=== PATIENT | male | born 1955 | race Caucasian/White ===

== ENCOUNTER 2021-10-25 13:00 | Inpatient (IN) | payer MEDICARE ==
[~2021-10-25] VITALS: Ht 177.8 cm; Wt 84.1 kg
[2021-11-03] MEDS ORDERED: CARV6.253 PO (10:24)
[2021-11-03] MEDS ORDERED: LISI10TA27 PO (10:24)
[2021-11-03] MEDS ORDERED: ATOR-2 PO (10:24)
[2021-11-03] MEDS ORDERED: EZET10TA6 PO (10:24)
[2021-11-03] MEDS ORDERED: HYDR-3965 PO (10:24)
[2021-11-03] MEDS ORDERED: FENO145T26 PO (10:24)
[2021-11-03] MEDS ORDERED: [UNRECOGNIZED DRUG - CODE] PO (10:24)
[2021-11-03 12:05] LABS: BASOPHILS % (AUTO) 0.6 % (0-1); EOSINOPHILS # (AUTO) 0.2 X10'3 (0-0.9); EOSINOPHILS % (AUTO) 2.6 % (0-6); LYMPHOCYTES # (AUTO) 1.7 X10'3 (1.1-4.8); LYMPHOCYTES % (AUTO) 25.1 % (21-51); MEAN CORPUSCULAR HEMOGLOBIN 30.2 PG (27.0-31.0); MEAN CORPUSCULAR HGB CONC 33.6 g/dL (33.0-36.5); MEAN CORPUSCULAR VOLUME 89.9 FL (78-98); MEAN PLATELET VOLUME 5.9 FL (7.4-10.4); MONOCYTES # (AUTO) 0.5 X10'3 (0-0.9); MONOCYTES % (AUTO) 7.3 % (2-12); NEUTROPHILS # (AUTO) 4.3 X10'3 (1.8-7.7); NEUTROPHILS % (AUTO) 64.4 % (42-75); PRE OP HEMATOCRIT 42.6 % (42.0-52.0); PRE OP HEMOGLOBIN 14.3 g/dL (14.0-17.9); PRE OP PLATELET COUNT 239 X10'3 (140-440); RED BLOOD COUNT 4.74 X10'6 (4.70-6.10)
[2021-11-03 12:07] LABS: ALBUMIN 4.5 G/DL (3.4-5.0); ALBUMIN/GLOBULIN RATIO 1.3 (1.1-1.5); ALKALINE PHOSPHATASE 54 IU/L (46-116); BLOOD UREA NITROGEN 24 MG/DL (7-18); BUN/CREATININE RATIO 20.7 (5.4-32.0); CALCIUM 8.9 MG/DL (8.5-10.1); CHLORIDE 105 MMOL/L (99-107); CREATININE 1.16 MG/DL (0.60-1.10); PRE OP ALT 28 U/L (30-65); PRE OP ANION GAP 10 (8-16); PRE OP AST 18 U/L (10-37); PRE OP BILIRUB, TOTAL 0.6 MG/DL (0.0-1.0); PRE OP GLUCOSE 106 MG/DL (70-104); PRE OP POTASSIUM 4.5 MMOL/L (3.4-5.1); PRE OP SODIUM 142 MMOL/L (135-145); TOTAL CARBON DIOXIDE 26.6 MMOL/L (24-32); eGFR 63 ML/MIN
[2021-11-05] MEDS ORDERED: ISOS30TA84 PO (13:21)
[2021-11-08] VITALS (20 sets, daily range): BP systolic 110–188; BP diastolic 67–97
[2021-11-08] MEDS ORDERED: ringers solution, lacted 1,000 ML IV SCH ×2 (05:00→14:30)
[2021-11-08] MEDS ORDERED: DOCUMENT DATE & TIME OF BETA-BLOCKER PO ONE (05:30)
[2021-11-08] MEDS ORDERED: vancomycin 1,500 MG in NS 300ml IV soln IV ONE (05:30)
[2021-11-08] MEDS ORDERED: ceFAZolin inj. 2,000 MG in dextrose 5%-water 100 ML IV ONE (05:30)
[2021-11-08] MEDS ORDERED: tranexamic acid 650mg tablet PO ONE (05:30)
[2021-11-08] MEDS ORDERED: famotidine 20mg tablet PO ONE (05:30)
--- NOTE | 2021-11-08 09:30 | NUR ---
PT WAS ABLE TO COMPLETE 3 OF THE 5 DAYS OF OINTMENT AND SHOWERS D/T DELAYED OBTAINMENT OF OINTMENT, PT EDUCATED RE: IS AND ON-Q BALL, PT HAS HAD PREVIOUS TSA AND DID READ THE SHOULDER BOOKLET, CSM INTACT TO LEFT ARM.
[2021-11-08] MEDS ORDERED: HYDR-3972 PO (09:36)
[2021-11-08] MEDS ORDERED: HYDROcodone/acetaminophen 10/325mg tab PO ONE (09:40)
[2021-11-08] MEDS ORDERED: ROPIVAcaine 0.5% (5mg/ml) 30ml vial ONE ×2 (11:25→12:30)
[2021-11-08] MEDS ORDERED: ketorolac trometh. 30mg/ml inj. ONE (11:25)
[2021-11-08] MEDS ORDERED: fentaNYL/PF 50MCG/1 ML 2ML syringe ONE ×2 (11:43→12:50)
[2021-11-08] MEDS ORDERED: midazolam 1 mg/ML 2ml injection ONE ×2 (11:44→11:58)
[2021-11-08] MEDS ORDERED: ondansetron/PF 4mg/2ml inj ONE (12:30)
[2021-11-08] MEDS ORDERED: dexamethasone sod phosphate 4mg/ml inj. ONE (12:30)
[2021-11-08] MEDS ORDERED: propofol inj 20 ML IV ONE (12:30)
[2021-11-08] MEDS ORDERED: ketamine 50mg/5ml syringe ONE (12:48)
[2021-11-08 13:50] LABS: APPEARANCE,SYNOVIAL FLUID CLOUDY; COLOR,SYNOVIAL FLUID YELLOW; SYN RBC 526 /CU MM (0); SYN WBC 146 /CU MM (0-200); SYNOVIAL LINING CELLS MANY
[2021-11-08] MEDS ORDERED: acetaminophen 1,000mg/100ml IV 100 ML IV ONE (14:13)
--- NOTE | 2021-11-08 14:25 | NUR ---
Received from OR via BED, accompanied by Anesthesiologist and OR NURSE. report given by Anesthesiolgist. VERBAL ORDER TAKEN AT BEDSIDE FROM MD FOR DEMEROL TO BE GIVEN FOR SHIVERS. LEFT SHOULDER DRESSING CDI; PWDR PACK IN PLACE,LEFT ARM IN SLING. 20G IN PLACE TO RT LFA. PT DROWSY; RESPONDS TO VERBAL COMMANDS. DENIES PAIN Addendum: 11/08/21 at 1447 by Shana Michel RN Amended: Links added.
[2021-11-08] MEDS ORDERED: ROPIVAcaine 0.2% (10 MG/5 ML) BOLUS INJECTION INTERSCALE PRN (14:30)
[2021-11-08] MEDS ORDERED: ROPIVAcaine 0.2%/PF PUMP/bolus 545 ML INTERSCALE SCH (14:30)
[2021-11-08] MEDS ORDERED: proCHLORperazine 10 MG/2 ml inj IV PRN (14:30)
[2021-11-08] MEDS ORDERED: meperidine/PF 25mg/ml syringe IV PRN ×3 (14:30)
[2021-11-08] MEDS ORDERED: ondansetron/PF 4mg/2ml inj IV PRN ×2 (14:30→15:00)
[2021-11-08] MEDS ORDERED: morphine 2 MG/ML inj. syringe IV PRN (14:30)
[2021-11-08] MEDS ORDERED: meperidine/PF 25mg/ml syringe ONE (14:31)
[2021-11-08] MEDS ORDERED: oxyCODONE IR 5mg (immed. release) tablet PO PRN (15:00)
[2021-11-08] MEDS ORDERED: morphine ER 100mg tablet PO PRN (15:00)
[2021-11-08] MEDS ORDERED: diphenhydrAMINE 25mg capsule PO PRN ×2 (15:00)
[2021-11-08] MEDS ORDERED: magnesium hydroxide 30ml (MOM) UD suspension PO PRN (15:00)
[2021-11-08] MEDS ORDERED: HYDROcodone/acetaminophen 10/325mg tab PO PRN ×2 (15:00)
[2021-11-08] MEDS ORDERED: HYDROmorphone 1 mg/ml syringe IV PRN (15:00)
[2021-11-08] MEDS ORDERED: bisacodyl 10mg suppository rectal RC PRN (15:00)
[2021-11-08] MEDS ORDERED: HYDROmorphone inj. 0.5 MG/0.5 ML DISP.SYRIN IV PRN (15:00)
[2021-11-08] MEDS ORDERED: acetaminophen 325mg tablet PO PRN (15:00)
[2021-11-08] MEDS ORDERED: naloxone 0.4 mg/ml inj IV PRN (15:00)
--- NOTE | 2021-11-08 15:30 | NUR ---
Received report from [facility]. awaiting patient arrival.
[2021-11-08] MEDS: morphine 4 MG/ML inj SYRINge IV PRN ×2 (15:39→15:53)
--- NOTE | 2021-11-08 16:10 | NUR ---
Report called to receiving nurse. Transferred via BED. PT STATES THAT Belongings WERE SENT WITH . PT ALERT AND STATES COMFORTABLE WITH LEVEL OF DISCOMFORT. ONQ IN PLACE; PT RECEIVED ON BOLUS; DRESSING CDI. TOLERATING ICE CHIPS.. Special Issues communicated to receiving nurse. Addendum: 11/08/21 at 1631 by Shana Michel RN Amended: Links added.
--- NOTE | 2021-11-08 16:15 | NUR ---
Patient arrived to floor. VSS. c/o mild pain. OnQ @6ml/hr.
[2021-11-08] MEDS: potassium cl 20mEq in 1/2 NS 1,000 ML IV SCH ×2 (16:22→23:43)
[2021-11-08] MEDS: oxyCODONE IR 5mg (immed. release) tablet PO PRN ×2 (16:41→22:03)
[2021-11-08] MEDS: ceFAZolin/D5W- 1GM premix 50 ML IV SCH ×2 (17:31→23:41)
--- NOTE | 2021-11-08 18:14 | NUR ---
Problems reprioritized. Patient report given, questions answered & plan of care reviewed with AKIKO Valera.
--- NOTE | 2021-11-08 18:34 | NUR ---
Patient in room [facility]TH[facility] 4013. I have received report from guerrero Miller and had the opportunity to ask questions and assume patient care.
[2021-11-08] MEDS: acetaminophen 325mg tablet PO SCH (19:14)
[2021-11-08] MEDS: carvedilol 6.25mg tablet PO SCH (19:15)
[2021-11-08] MEDS: lisinopril 10 MG tablet PO SCH (19:15)
[2021-11-08] MEDS ORDERED: vancomycin/NS 1 GM ADD-VANTAGE 250 ML IV SCH (20:00)
[2021-11-08] MEDS ORDERED: sennosides 8.6mg tablet PO SCH (21:00)
[2021-11-09 02:00] VITALS: BP 143/85
[2021-11-09] MEDS: acetaminophen 325mg tablet PO SCH ×2 (02:00→07:53)
[2021-11-09] MEDS: oxyCODONE IR 5mg (immed. release) tablet PO PRN ×3 (03:27→12:07)
[2021-11-09 06:00] VITALS: BP 149/84
--- NOTE | 2021-11-09 06:14 | NUR ---
Problems reprioritized. Patient report given, questions answered & plan of care reviewed with AKIKO MONTERROSO.
[2021-11-09 06:19] LABS: BASOPHILS % (AUTO) 0.1 % (0-1); EOSINOPHILS % (AUTO) 0 % (0-6); HEMATOCRIT 35.8 % (42.0-52.0); HEMOGLOBIN 12.5 g/dl (14.0-17.9); LYMPHOCYTES % (AUTO) 9.4 % (21-51); MEAN CORPUSCULAR HEMOGLOBIN 31.3 PG (27.0-31.0); MEAN CORPUSCULAR HGB CONC 34.8 g/dL (33.0-36.5); MONOCYTES # (AUTO) 0.8 X10'3 (0-0.9); MONOCYTES % (AUTO) 7.6 % (2-12); NEUTROPHILS # (AUTO) 8.6 X10'3 (1.8-7.7); NEUTROPHILS % (AUTO) 82.9 % (42-75); PLATELET COUNT 178 X10'3 (140-440); RED BLOOD COUNT 3.98 X10'6 (4.70-6.10); RED CELL DISTRIBUTION WIDTH 15.1 % (11.5-14.5); WHITE BLOOD COUNT 10.3 X10'3 (4.5-11.0)
--- NOTE | 2021-11-09 06:20 | NUR ---
RECEIVED REPORT FROM AKIKO WALTERS
[2021-11-09 06:31] LABS: ANION GAP 8 (8-16); CHLORIDE 107 MMOL/L (99-107); POTASSIUM 4.2 MMOL/L (3.5-5.1); SODIUM 139 MMOL/L (135-145); TOTAL CARBON DIOXIDE 23.9 MMOL/L (24-32)
[2021-11-09] MEDS: potassium cl 20mEq in 1/2 NS 1,000 ML IV SCH (07:00)
[2021-11-09] MEDS: carvedilol 6.25mg tablet PO SCH (07:50)
[2021-11-09] MEDS: lisinopril 10 MG tablet PO SCH (07:53)
[2021-11-09] MEDS ORDERED: atorvastatin 20mg tablet PO SCH (08:00)
[2021-11-09] MEDS ORDERED: fenofibrate 145mg tablet PO SCH (08:00)
[2021-11-09] MEDS ORDERED: ezetimibe 10mg tablet PO SCH (08:00)
[2021-11-09] MEDS ORDERED: isosorbide mononitrate 30mg tab.SR.24H PO SCH (08:00)
[2021-11-09] MEDS ORDERED: aspirin 325mg tablet PO SCH (08:30)
[2021-11-09 10:00] VITALS: BP 149/99
--- NOTE | 2021-11-09 10:59 | NUR ---
Joint surgery consult: Pt s/p L shoulder this admit. Pt seen by ANDRESSA for written/verbal high protein diet ed w/ RD contact information provided. ANDRESSA encouraged pt to contact dietitian's office if further questions/concerns. Addendum: 11/09/21 at [address] Amended: Links added.
--- NOTE | 2021-11-09 12:38 | NUR ---
pt d/c with instructions, understanding of instructions and w/all belongings accompanied by to private vehicle to go home and f/u w/surgeon
[2021-11-10] MEDS ORDERED: acetaminophen 325mg tablet PO PRN (15:00)
== END 2021-11-09 12:43 | disposition home or self-care (01) | DRG 483 ==
LOC: PAS IN 11-08 08:18 → ORTHO 4S 11-08 16:15
PROVIDERS: ADMIT Orthopaedic Surgery; ATTEND Orthopaedic Surgery
PROC: 0RRK00Z Replacement of Left Shoulder Joint with Reverse Ball and Socket Synthetic Substitute, Open Approach (ICD-10-PCS; 2021-11-08)
PROC: 0RPK0JZ Removal of Synthetic Substitute from Left Shoulder Joint, Open Approach (ICD-10-PCS; principal; 2021-11-08 11:46)
DX: M75.102 Unspecified rotator cuff tear or rupture of left shoulder, not specified as traumatic (principal); D62 Acute posthemorrhagic anemia; M25.512 Pain in left shoulder; G89.29 Other chronic pain; Z79.899 Other long term (current) drug therapy
CPT/HCPCS: 36415; 80051; 80053; 82948; 85025; 87070; 87075; 87081; 87811; 89051; A4615; G0378; J0131; J0690; J1100; J1170; J1885; J2175; J2250; J2270; J2405; J2704; J2795; J3010; J3370; J3480; J3490; J7040; J7060; J7120; Q0163